=== PATIENT | male | born 1980 | race Two or more races ===

== ENCOUNTER 2019-11-12 15:39 | Emergency (ER) | payer OTHER ==
[~2019-11-12] VITALS: Ht 165.1 cm; Wt 91.0 kg
[2019-11-12 15:42] VITALS: BP 158/114
[2019-11-12] MEDS ORDERED: IBUPROFEN 600MG TABLET PO ONE (16:00)
[2019-11-12] MEDS ORDERED: HYDROCODONE/ACETAMINOPHEN 5/325MG TABLET PO ONE (18:30)
== END 2019-11-12 19:17 | disposition home or self-care (01) ==
LOC: ER 15:39
DX: S62.171A Displaced fracture of trapezium [larger multangular], right wrist, initial encounter for closed fracture (principal); W22.8XXA Striking against or struck by other objects, initial encounter; Y93.89 Activity, other specified; Y92.89 Other specified places as the place of occurrence of the external cause; Y99.8 Other external cause status; Z98.890 Other specified postprocedural states
CPT/HCPCS: 29125; 73130; 99283